=== PATIENT | female | born 1940 | race Caucasian/White ===

== ENCOUNTER 2016-04-28 16:53 | Emergency (ER) | payer MEDICARE, MEDICAID ==
[2016-04-28 18:16] VITALS: BP 131/65
--- NOTE | 2016-04-28 18:32 | EDM.PDOC ---
ED HISTORY OF PRESENT ILLNESS - General Chief Complaint: Chest Pain Stated Complaint: CHEST PAIN Time Seen by Provider: 04/28/16 17:30 Source: Reports: Patient History Limitations: Reports: No limitations - History of Present Illness INITIAL COMMENTS - FREE TEXT/NARRATIVE: History of present illness: [76-year-old female presenting with some chest pain which occurred after having an argument with her . She resides at a senior care. The chest given 3 nitroglycerin prior to coming in. She's feeling better now that she is here. She does have a cardiac history. She does feel some shortness of breath nausea and diaphoresis with this. But all this has resolved now. Her is with her and they are spending each other and apparently whenever the argument was over his done. ] Review of systems: As per history of present illness and below otherwise all systems reviewed and negative. Past medical history: As per history of present illness and as reviewed below otherwise noncontributory. Surgical history: As per history of present illness and as reviewed below otherwise noncontributory. Social history: No reported history of drug or alcohol abuse. Family history: As per history of present illness and as reviewed below otherwise noncontributory. Physical exam: HEENT: Atraumatic, normocephalic, pupils reactive, negative for conjunctival pallor or scleral icterus, mucous membranes moist, throat clear, neck supple, nontender, trachea midline. Lungs: Clear to auscultation, breath sounds equal bilaterally, chest nontender. Heart: S1S2, regular, negative for clicks, rubs, or JVD. Abdomen: Soft, nondistended, nontender. Negative for masses or hepatosplenomegaly. Negative for costovertebral tenderness. Pelvis: Stable nontender. Genitourinary: Deferred. Rectal: Deferred. Extremities: Atraumatic, negative for cords or calf pain. Neurovascular unremarkable. Neuro: Awake, alert, oriented. She's had a prior stroke and has braces on her lower extremities Diagnostics: [EKG shows a sinus rhythm with a rate of 66 with early precordial RS transition there is nonspecific T abnormalities in the inferior leads but nothing that is concerning for ischemia or injury. Her troponin was negative.] Therapeutics: [] Impression: [Chest pain] Plan: [A fairly long discussion with her about cardiac pain and certainly she had features that suggest this but they have resolved now. In the context of her having an emotional event it certainly could be she could have had a coronary spasm but she also could have underlying coronary disease. If she experiences this kind of pain again she'll need to return to the emergency room and may need further evaluation and workup but at this point I think it would be best to have her return and hopefully she will not have any further events.] Definitive disposition and diagnosis as appropriate pending reevaluation and review of above. - Related Data Allergies/ADRs: Allergies Allergy/AdvReac Type Severity Reaction Status Date / Time Iodinated Contrast Media - Allergy Severe Anaphylactic Verified 04/28/16 17:04 Oral and Shock [Iodinated Contrast Media - IV Dye] iodine Allergy Severe Anaphylactic Verified 04/28/16 17:04 Shock clindamycin Allergy Rash Verified 04/28/16 17:04 erythromycin base Allergy Cannot Verified 04/28/16 17:04 [Erythromycin Base] Remember hydroxyzine Allergy Confusion Verified 04/28/16 17:04 lidocaine Allergy Cannot Verified 04/28/16 17:04 Remember Penicillins Allergy Cannot Verified 04/28/16 17:04 Remember procaine [Procaine] Allergy Rash Verified 04/28/16 17:04 Sulfa (Sulfonamide Allergy Cannot Verified 04/28/16 17:04 Antibiotics) Remember aspirin AdvReac Cannot Verified 04/28/16 17:04 Remember Home Meds: Home Meds Citalopram [Citalopram HBr] 40 mg PO QAM 12/01/13 [History] Diazepam [Valium] 2 mg PO BEDTIME PRN 12/01/13 [History] EPINEPHrine [Epipen] 0.3 mg IM ASDIRECTED PRN 12/01/13 [History] Esomeprazole [NexIUM] 40 mg PO BID 12/01/13 [History] Furosemide 40 mg PO BID 12/01/13 [History] Gabapentin 600 mg PO BEDTIME 12/01/13 [History] Hydrocodone/Acetaminophen [[place] 5-325] 1 tab PO BID PRN 12/01/13 [History] Nitroglycerin [Nitrostat] 0.3 mg SL ASDIRECTED PRN 12/01/13 [History] Polyvinyl Alcohol [Artificial Tears] 1 drop EYEBOTH ASDIRECTED PRN 12/01/13 [ History] Potassium Chloride [Potassium Chloride Solution] 20 meq PO DAILY 10/22/14 [ History] predniSONE [Prednisone] 20 mg PO DAILY 12/01/13 [History] lamoTRIgine [LaMICtal] 100 mg PO BID 07/06/15 [History] Oxybutynin 2.5 mg PO BID 03/11/16 [History] Cephalexin [Keflex] 500 mg PO TID #30 cap 03/15/16 [Rx] Past Medical History HEENT History: Reports: Cataract, Other (see below) Other HEENT History: dental, upper and lower dentures Cardiovascular History: Reports: CAD, Heart Failure, Heart murmur, Hypertension , Other (see below) Other Cardiovascular History: angiogram Respiratory History: Reports: COPD, Other (see below) Other Respiratory History: 02 2lnc at home prn Gastrointestinal History: Reports: GERD Genitourinary History: Reports: Renal disease [employer] History: Reports: Musculoskeletal History: Reports: Back pain, chronic, Fracture, Osteoarthritis Neurological History: Reports: CVA, Seizure, Other (see below) Other Neuro History: Polio, encephalitis. Psychiatric History: Reports: Depression Other Psychiatric History: claustrophobia Endocrine/Metabolic History: Reports: Obesity/BMI 30+ Dermatologic History: Reports: Other (see below) Other Dermatologic History: rash, yeast infection, bilateral lower legs red, edematous, pt states they leak clear fluid at times - Infectious Disease History Infectious Disease History: Reports: Measles - Past Surgical History HEENT Surgical History: Reports: Tonsillectomy Respiratory Surgical History: Reports: None GI Surgical History: Reports: Cholecystectomy, Hernia repair/other, Lysis of adhesions Female Surgical History: Reports: Hysterectomy, Other (see below) Other Female Surgeries/Procedures: perianal abscess Musculoskeletal Surgical History: Reports: Other (see below) Other Musculoskeletal Surgeries/Procedures:: spurs on spine Social & Family History - Family History Family Medical History: Noncontributory Endocrine/Metabolic: Reports: Diabetes, type II - Tobacco Use Smoking Status *Q: Never Smoker Second Hand Smoke Exposure: Yes - Caffeine Use Caffeine Use: Reports: Soda - Alcohol Use Days Per Week of Alcohol Use: 0 - Recreational Drug Use Recreational Drug Use: No ED ROS GENERAL - Review of Systems Review Of Systems: ROS reveals no pertinent complaints other than HPI. ED EXAM, GENERAL - Physical Exam Exam: See Below Course - Vital Signs Last Recorded V/S: Last Vital Signs Temp 36.6 C 04/28/16 16:56 Pulse 66 04/28/16 18:15 Resp 21 H 04/28/16 18:15 BP 131/65 04/28/16 18:15 Pulse Ox 95 04/28/16 18:15 - Orders/Labs/Meds Labs: Laboratory Tests 04/28/16 Range/Units 17:39 Troponin I 0.022 (0.000-0.056) ng/mL Departure - Departure Time of Disposition: 18:33 Disposition: Home, Self-Care 01 Condition: good Clinical Impression: Chest pain Qualifiers: Chest pain type: other chest pain Qualified Code(s): R07.89 - Other chest pain ; R07.8 - Other chest pain Forms: ED Department Discharge Additional Instructions: He did experience this kind of chest pain again in the future he will need to return to the emergency room for another evaluation. The nurses at the senior care they tried nitroglycerin first but if that does not resolve your pain he will need to return.
== END 2016-04-28 19:19 | disposition home or self-care (01) ==
LOC: JP.ED 16:53
DX: R07.89 Other chest pain (principal); I25.10 Atherosclerotic heart disease of native coronary artery without angina pectoris; I50.9 Heart failure, unspecified; I10 Essential (primary) hypertension; J44.9 Chronic obstructive pulmonary disease, unspecified; K21.9 Gastro-esophageal reflux disease without esophagitis; F32.9 Major depressive disorder, single episode, unspecified; E66.9 Obesity, unspecified; Z68.43 Body mass index [BMI] 50.0-59.9, adult; Z90.49 Acquired absence of other specified parts of digestive tract; Z90.710 Acquired absence of both cervix and uterus; Z98.890 Other specified postprocedural states; Z79.899 Other long term (current) drug therapy; Z88.0 Allergy status to penicillin; Z88.1 Allergy status to other antibiotic agents; Z88.2 Allergy status to sulfonamides; Z88.8 Allergy status to other drugs, medicaments and biological substances; Z91.041 Radiographic dye allergy status
CPT/HCPCS: 36415; 84484; 93005; 93010; 99283; 99285

== ENCOUNTER 2016-07-26 12:18 | Emergency (ER) | payer MEDICARE, MEDICAID ==
[2016-07-26 12:26] VITALS: BP 99/43
[2016-07-26] MEDS ORDERED: Sodium Chloride 0.9% 10 ML Syringe FLUSH PRN ×2 (12:41)
--- NOTE | 2016-07-26 12:44 | EDM.PDOC ---
ED HPI GENERAL MEDICAL PROBLEM - General Chief Complaint: General Stated Complaint: MED[facility] Time Seen by Provider: 07/26/16 12:40 Source of Information: Reports: Patient, EMS History Limitations: Reports: Altered Mental Status - History of Present Illness INITIAL COMMENTS - FREE TEXT/NARRATIVE: Found slumped in chair in front of desk at assisted living. Just moved in 2 days ago. No hx of trauma. She is sleepy but awakens, states she feels tired. Denies trauma, no signs of infection Onset: Today Severity: Moderate Headache Pain Score (Numeric/FACES): 5 - Related Data Allergies Allergy/AdvReac Type Severity Reaction Status Date / Time Iodinated Contrast- Oral and Allergy Severe Anaphylactic Verified 04/28/16 17:04 IV Dye Shock [Iodinated Contrast Media - IV Dye] iodine Allergy Severe Anaphylactic Verified 04/28/16 17:04 Shock clindamycin Allergy Rash Verified 04/28/16 17:04 erythromycin base Allergy Cannot Verified 04/28/16 17:04 [Erythromycin Base] Remember hydroxyzine Allergy Confusion Verified 04/28/16 17:04 lidocaine Allergy Cannot Verified 04/28/16 17:04 Remember Penicillins Allergy Cannot Verified 04/28/16 17:04 Remember procaine [Procaine] Allergy Rash Verified 04/28/16 17:04 Sulfa (Sulfonamide Allergy Cannot Verified 04/28/16 17:04 Antibiotics) Remember aspirin AdvReac Cannot Verified 04/28/16 17:04 Remember Home Meds: Home Meds Citalopram [Citalopram HBr] 40 mg PO QAM 12/01/13 [History] Diazepam [Valium] 2 mg PO BEDTIME PRN 12/01/13 [History] EPINEPHrine [Epipen] 0.3 mg IM ASDIRECTED PRN 12/01/13 [History] Esomeprazole [NexIUM] 40 mg PO BID 12/01/13 [History] Furosemide 40 mg PO BID 12/01/13 [History] Gabapentin 600 mg PO BEDTIME 12/01/13 [History] Hydrocodone/Acetaminophen [[place] 5-325] 1 tab PO BID PRN 12/01/13 [History] Nitroglycerin [Nitrostat] 0.3 mg SL ASDIRECTED PRN 12/01/13 [History] Polyvinyl Alcohol [Artificial Tears] 1 drop EYEBOTH ASDIRECTED PRN 12/01/13 [ History] Potassium Chloride [Potassium Chloride Solution] 20 meq PO DAILY 12/01/13 [ History] predniSONE [Prednisone] 20 mg PO DAILY 12/01/13 [History] lamoTRIgine [LaMICtal] 100 mg PO BID 07/06/15 [History] Oxybutynin 2.5 mg PO BID 03/11/16 [History] Cephalexin [Keflex] 500 mg PO TID #30 cap 03/15/16 [Rx] Past Medical History HEENT History: Reports: Cataract, Other (See Below) Other HEENT History: dental, upper and lower dentures Cardiovascular History: Reports: CAD, Heart Failure, Heart Murmur, Hypertension , Other (See Below) Other Cardiovascular History: angiogram Respiratory History: Reports: COPD, Other (See Below) Other Respiratory History: 02 2lnc at home prn Gastrointestinal History: Reports: GERD Genitourinary History: Reports: Renal Disease [employer] History: Reports: Musculoskeletal History: Reports: Back Pain, Chronic, Fracture, Osteoarthritis Neurological History: Reports: CVA, Seizure, Other (See Below) Other Neuro History: Polio, encephalitis. Psychiatric History: Reports: Depression Other Psychiatric History: claustrophobia Endocrine/Metabolic History: Reports: Obesity/BMI 30+ Dermatologic History: Reports: Other (See Below) Other Dermatologic History: rash, yeast infection, bilateral lower legs red, edematous, pt states they leak clear fluid at times - Infectious Disease History Infectious Disease History: Reports: Measles - Past Surgical History GI Surgical History: Reports: Cholecystectomy, Hernia Repair/Other, Lysis of Adhesions Female Surgical History: Reports: Hysterectomy, Other (See Below) Musculoskeletal Surgical History: Reports: Other (See Below) Social & Family History - Family History Family Medical History: Noncontributory Endocrine/Metabolic: Reports: Diabetes, type II - Tobacco Use Smoking Status *Q: Never Smoker Second Hand Smoke Exposure: Yes - Caffeine Use Caffeine Use: Reports: Coffee - Alcohol Use Days Per Week of Alcohol Use: 0 - Recreational Drug Use Recreational Drug Use: No ED ROS GENERAL - Review of Systems Review Of Systems: See Below Constitutional: Reports: Weakness, Fatigue. Denies: Fever, Chills, Malaise HEENT: Reports: No Symptoms Respiratory: Reports: No Symptoms Cardiovascular: Reports: No Symptoms, Edema (chronic , using lymphedema wraps) Endocrine: Reports: No Symptoms GI/Abdominal: Reports: No Symptoms : Reports: No Symptoms Musculoskeletal: Reports: Other (has arthritis in neck knees and ankles) Skin: Reports: No Symptoms Neurological: Denies: Confusion, Dizziness, Headache, Change in Speech ED EXAM, GENERAL - Physical Exam Exam: See Below Exam Limited By: Other (initially sleepy, awakening, then was wide awake, carrying on normal conversation) General Appearance: Alert Ears: Normal External Exam, Normal Canal, Normal TMs Nose: Normal Inspection, Normal Mucosa Throat/Mouth: Normal Inspection, Normal Lips, Normal Teeth, Normal Oropharynx Head: Atraumatic, Normocephalic Neck: Normal Inspection, Supple, Non-Tender Respiratory/Chest: No Respiratory Distress, Lungs Clear, Normal Breath Sounds Cardiovascular: Normal Peripheral Pulses, Regular Rate, Rhythm, No Murmur GI/Abdominal: Normal Bowel Sounds, Soft Extremities: Normal Inspection, Pedal Edema (wearing lymphedema garments) Neurological: Alert, Oriented, CN II-XII Intact, No Motor/Sensory Deficits Psychiatric: Other (sleepy initially) Skin Exam: Warm, Dry, Intact Course - Vital Signs Last Recorded V/S: Last Vital Signs Temp 35.2 C 07/26/16 12:37 Pulse 60 07/26/16 12:37 Resp 20 07/26/16 12:37 BP 99/43 L 07/26/16 12:37 Pulse Ox 94 L 07/26/16 12:37 - Orders/Labs/Meds Orders: Active Orders 24 hr Category Date Time Status EKG Documentation Completion [RC] ASDIRECTED Care 07/26/16 12:43 Active Oxygen Therapy [RC] PRN Care 07/26/16 12:41 Active Peripheral IV Care [RC] . DIRECTED Care 07/26/16 12:42 Active Pulse Oximetry [RC] CONTINUOUS Care 07/26/16 12:41 Active Nothing per Oral Now Diet [DIET] Diet 07/26/16 Lunch Active Sodium Chloride 0.9% [Normal Saline] 500 ml Med 07/26/16 12:45 Active IV .BOLUS Sodium Chloride 0.9% [Saline Flush] Med 07/26/16 12:41 Active 10 ml FLUSH ASDIRECTED PRN Sodium Chloride 0.9% [Saline Flush] Med 07/26/16 12:41 Active 10 ml FLUSH ASDIRECTED PRN Peripheral IV Insertion Adult [OM.PC] Stat Oth 07/26/16 12:41 Ordered EKG 12 Lead [EK] Urgent Ther 07/26/16 12:41 Ordered Medication Orders Sodium Chloride (Normal Saline) 500 mls @ 999 mls/hr IV .BOLUS JEEVAN Last Admin: 07/26/16 13:17 Dose: 999 mls/hr Sodium Chloride (Saline Flush) 10 ml FLUSH ASDIRECTED PRN PRN Reason: Keep Vein Open Last Admin: 07/26/16 13:17 Dose: 10 ml Sodium Chloride (Saline Flush) 10 ml FLUSH ASDIRECTED PRN PRN Reason: Keep Vein Open Last Admin: 07/26/16 13:17 Dose: 10 ml Labs: Laboratory Tests 07/26/16 07/26/16 07/26/16 Range/Units 12:30 12:30 12:30 WBC 8.4 (4.5-11.0) K/uL RBC 4.48 (3.30-5.50) M/uL Hgb 11.7 L (12.0-15.0) g/dL Hct 38.9 (36.0-48.0) % MCV 87 (80-98) fL MCH 26 L (27-31) pg MCHC 30 L (32-36) % Plt Count 248 (150-400) K/uL Neut % (Auto) 51 (36-66) % Lymph % (Auto) 35 (24-44) % Esmer[place]da % (Auto) 11 H (2-6) % Eos % (Auto) 2 (2-4) % Baso % (Auto) 1 (0-1) % Sodium 145 (140-148) mmol/L Potassium 4.2 (3.6-5.2) mmol/L Chloride 107 (100-108) mmol/L Carbon Dioxide 33 H (21-32) mmol/L Anion Gap 9.2 (5.0-14.0) mmol/L BUN 6 L D (7-18) mg/dL Creatinine 1.0 (0.6-1.0) mg/dL Est Cr Clr Drug Dosing 34.38 mL/min Estimated GFR (MDRD) 54 L (>60) Glucose 96 (74-106) mg/dL Lactic Acid 1.3 (0.4-2.0) mmol/L Calcium 8.9 (8.5-10.1) mg/dL Total Bilirubin 0.3 (0.2-1.0) mg/dL AST 19 (15-37) U/L ALT 15 (12-78) U/L Alkaline Phosphatase 76 (46-116) U/L Troponin I 0.017 (0.000-0.056) ng/mL Total Protein 6.0 L (6.4-8.2) g/dL Albumin 3.1 L (3.4-5.0) g/dL Globulin 2.9 (2.3-3.5) g/dL Albumin/Globulin Ratio 1.1 L (1.2-2.2) Lipase 100 (73-393) U/L Urine Color Urine Appearance Urine pH (4.5-8.0) Ur Specific [place] (1.008-1.030) Urine Protein (NEGATIVE) mg/dL Urine Glucose (UA) (NEGATIVE) mg/dL Urine Ketones (NEGATIVE) mg/dL Urine Occult Blood (NEGATIVE) Urine Nitrite (NEGATIVE) Urine Bilirubin (NEGATIVE) Urine Urobilinogen (NORMAL) mg/dL Ur Leukocyte Esterase (NEGATIVE) Urine RBC (0-5) Urine WBC (0-5) Ur Epithelial Cells Amorphous Sediment Urine Bacteria Urine Mucus Urine Other 07/26/16 Range/Units 13:30 WBC (4.5-11.0) K/uL RBC (3.30-5.50) M/uL Hgb (12.0-15.0) g/dL Hct (36.0-48.0) % MCV (80-98) fL MCH (27-31) pg MCHC (32-36) % Plt Count (150-400) K/uL Neut % (Auto) (36-66) % Lymph % (Auto) (24-44) % Esmer[place]da % (Auto) (2-6) % Eos % (Auto) (2-4) % Baso % (Auto) (0-1) % Sodium (140-148) mmol/L Potassium (3.6-5.2) mmol/L Chloride (100-108) mmol/L Carbon Dioxide (21-32) mmol/L Anion Gap (5.0-14.0) mmol/L BUN (7-18) mg/dL Creatinine (0.6-1.0) mg/dL Est Cr Clr Drug Dosing mL/min Estimated GFR (MDRD) (>60) Glucose (74-106) mg/dL Lactic Acid (0.4-2.0) mmol/L Calcium (8.5-10.1) mg/dL Total Bilirubin (0.2-1.0) mg/dL AST (15-37) U/L ALT (12-78) U/L Alkaline Phosphatase (46-116) U/L Troponin I (0.000-0.056) ng/mL Total Protein (6.4-8.2) g/dL Albumin (3.4-5.0) g/dL Globulin (2.3-3.5) g/dL Albumin/Globulin Ratio (1.2-2.2) Lipase (73-393) U/L Urine Color Yellow Urine Appearance Clear Urine pH 5.0 (4.5-8.0) Ur Specific [place] 1.020 (1.008-1.030) Urine Protein Negative (NEGATIVE) mg/dL Urine Glucose (UA) Normal (NEGATIVE) mg/dL Urine Ketones Negative (NEGATIVE) mg/dL Urine Occult Blood Negative (NEGATIVE) Urine Nitrite Negative (NEGATIVE) Urine Bilirubin Small (NEGATIVE) Urine Urobilinogen Normal (NORMAL) mg/dL Ur Leukocyte Esterase Negative (NEGATIVE) Urine RBC 0-5 (0-5) Urine WBC 0-5 (0-5) Ur Epithelial Cells Few Amorphous Sediment Not seen Urine Bacteria Few Urine Mucus Few Urine Other Meds: Medications Generic Name Dose Route Start Last Admin Trade Name Freq PRN Reason Stop Dose Admin Sodium Chloride 500 mls @ 999 mls/hr 07/26/16 12:45 07/26/16 13:17 Normal Saline IV 999 mls/hr .BOLUS JEEVAN Administration Sodium Chloride 10 ml 07/26/16 12:41 07/26/16 13:17 Saline Flush FLUSH 10 ml ASDIRECTED PRN Administration Keep Vein Open Sodium Chloride 10 ml 07/26/16 12:41 07/26/16 13:17 Saline Flush FLUSH 10 ml ASDIRECTED PRN Administration Keep Vein Open - Re-Assessments/Exams Free Text/Narrative Re-Assessment/Exam: 07/26/16 14:36 seen on arrival, IV fluids started, labwork done and was normal. head CT normal After fluids was awake and talking asking to go home her case discussed with her POA Departure - Departure Time of Disposition: 15:05 Disposition: Home, Self-Care 01 Clinical Impression: Somnolence - Discharge Information Forms: ED Department Discharge - Problem List & Annotations (1) Altered mental status SNOMED Code(s): 615042634 Code(s): R41.82 - ALTERED MENTAL STATUS, UNSPECIFIED Status: Acute Current Visit: Yes Qualifiers: Altered mental status type: somnolence Qualified Code(s): R40.0 - Somnolence - Problem List Review Problem List Initiated/Reviewed/Updated: Yes - My Orders Last 24 Hours: My Active Orders 07/26/16 12:41 Oxygen Therapy [RC] PRN Pulse Oximetry [RC] CONTINUOUS Sodium Chloride 0.9% [Saline Flush] 10 ml FLUSH ASDIRECTED PRN Sodium Chloride 0.9% [Saline Flush] 10 ml FLUSH ASDIRECTED PRN Peripheral IV Insertion Adult [OM.PC] Stat EKG 12 Lead [EK] Urgent 07/26/16 12:42 Peripheral IV Care [RC] . DIRECTED 07/26/16 12:43 EKG Documentation Completion [RC] ASDIRECTED 07/26/16 12:45 Sodium Chloride 0.9% [Normal Saline] 500 ml IV .BOLUS 07/26/16 Lunch Nothing per Oral Now Diet [DIET] - Assessment/Plan Last 24 Hours: My Active Orders 07/26/16 12:41 Oxygen Therapy [RC] PRN Pulse Oximetry [RC] CONTINUOUS Sodium Chloride 0.9% [Saline Flush] 10 ml FLUSH ASDIRECTED PRN Sodium Chloride 0.9% [Saline Flush] 10 ml FLUSH ASDIRECTED PRN Peripheral IV Insertion Adult [OM.PC] Stat EKG 12 Lead [EK] Urgent 07/26/16 12:42 Peripheral IV Care [RC] . DIRECTED 07/26/16 12:43 EKG Documentation Completion [RC] ASDIRECTED 07/26/16 12:45 Sodium Chloride 0.9% [Normal Saline] 500 ml IV .BOLUS 07/26/16 Lunch Nothing per Oral Now Diet [DIET] Assessment:: Presents with change in mental status with sleepiness. No obvious precipitating cause, just moved into assisted living 2 days ago. Work-up in the ED was without cause with normal head CT, labwork all normal. Her mental status improved with fluids, until she was feeling better and was asking to go home. Her POA was called who was comfortable with her going home and she will be checking on her and making arrangements to make sure was doing well Plan: Will discharge back to assisted. Her POA will check on her later. At this time no clear reason for her somnolence, other than she may have overdone it yesterday
[2016-07-26] MEDS ORDERED: Sodium Chloride 0.9% 500 ML IV SCH (12:45)
--- NOTE | 2016-07-26 13:25 | CT ---
Head wo Cont INDICATION: Mental status changes. COMPARISON: CT head 07/06/2015. Total DLP 693. FINDINGS: No acute intracranial hemorrhage, mass, or edema. Generalized cerebral and cerebellar volu me loss. Cutaneous lesion left frontal scalp likely represents a dermoid cyst measuring 11 mm. Remai nder unremarkable. IMPRESSION: No acute intracranial abnormality.
== END 2016-07-26 15:18 | disposition home or self-care (01) ==
LOC: JP.ED 12:18
DX: R40.0 Somnolence (principal); K21.9 Gastro-esophageal reflux disease without esophagitis; I11.0 Hypertensive heart disease with heart failure; I50.9 Heart failure, unspecified; I25.10 Atherosclerotic heart disease of native coronary artery without angina pectoris; F32.9 Major depressive disorder, single episode, unspecified; E66.9 Obesity, unspecified; Z90.49 Acquired absence of other specified parts of digestive tract; Z98.890 Other specified postprocedural states; Z79.899 Other long term (current) drug therapy; Z88.2 Allergy status to sulfonamides; Z79.82 Long term (current) use of aspirin; Z88.8 Allergy status to other drugs, medicaments and biological substances; Z88.0 Allergy status to penicillin; Z88.1 Allergy status to other antibiotic agents; Z91.041 Radiographic dye allergy status
CPT/HCPCS: 36415; 70450; 80053; 81001; 83605; 83690; 84484; 85025; 93005; 96360; 96361; 99284; J7040; J7050; 93010

== ENCOUNTER 2019-03-03 11:05 | Emergency (ER) | payer MEDICAID, MEDICARE ==
[2019-03-03 11:10] VITALS: BP 146/38; PULSE 59
--- NOTE | 2019-03-03 11:25 | EDM.PDOC ---
ED HPI GENERAL MEDICAL PROBLEM - General Chief Complaint: Lower Extremity Injury/Pain Stated Complaint: FALL-VIA [facility] Time Seen by Provider: 03/03/19 11:10 Source of Information: Reports: Patient, EMS, [facility] Records History Limitations: Reports: No Limitations - History of Present Illness INITIAL COMMENTS - FREE TEXT/NARRATIVE: 70-year-old female was in a wheelchair being [facility] when her foot got caught on the floor and she fell forward out of the wheelchair onto her right knee, hip, and hit her face and forehead onto the floor. Her main complaint is pain in the right knee and right hip. No loss of consciousness, denies nausea or vomiting or headache. No visual complaints. Onset: Sudden Duration: Hour(s): (Within the last hour) Location: Reports: Head, Face, Lower Extremity, Right Quality: Reports: Sharp, Stabbing Improves with: Reports: Movement (Movement causes marked increased pain in her hip and knee) Associated Symptoms: Denies: Confusion, Chest Pain, Cough, Nausea/Vomiting, Shortness of Breath Right Knee Pain Score (Numeric/FACES): 9 - Related Data Allergies Allergy/AdvReac Type Severity Reaction Status Date / Time Iodinated Contrast Media Allergy Severe Anaphylactic Verified 04/28/16 17:04 [Iodinated Contrast Media - Shock IV Dye] iodine Allergy Severe Anaphylactic Verified 04/28/16 17:04 Shock clindamycin Allergy Rash Verified 04/28/16 17:04 erythromycin base Allergy Cannot Verified 04/28/16 17:04 [Erythromycin Base] Remember hydroxyzine Allergy Confusion Verified 04/28/16 17:04 lidocaine Allergy Cannot Verified 04/28/16 17:04 Remember Penicillins Allergy Cannot Verified 04/28/16 17:04 Remember procaine [Procaine] Allergy Rash Verified 04/28/16 17:04 Sulfa (Sulfonamide Allergy Cannot Verified 04/28/16 17:04 Antibiotics) Remember aspirin AdvReac Cannot Verified 04/28/16 17:04 Remember Home Meds: Home Meds Citalopram [Citalopram HBr] 20 mg PO QAM 12/01/13 [History] EPINEPHrine [Epipen] 0.3 mg IM ASDIRECTED PRN 12/01/13 [History] Furosemide 40 mg PO BID 12/01/13 [History] Gabapentin 600 mg PO BEDTIME 12/01/13 [History] Hydrocodone/Acetaminophen [Decherd 5-325] 1 tab PO BID PRN 12/01/13 [History] Polyvinyl Alcohol [Artificial Tears] 1 drop EYEBOTH ASDIRECTED PRN 12/01/13 [ History] Potassium Chloride [Potassium Chloride Solution] 20 meq PO DAILY 12/01/13 [ History] predniSONE [Prednisone] 2.5 mg PO ASDIRECTED 12/01/13 [History] lamoTRIgine [Lamictal] 200 mg PO BID 07/06/15 [History] ARIPiprazole [Aripiprazole] 5 mg PO DAILY 03/03/19 [History] Aspirin 325 mg PO ASDIRECTED PRN 03/03/19 [History] Calcium Carbonate/Vitamin D3 [Calcium Carb 500 MG] 750 mg PO TID PRN 03/03/19 [ History] Cholecalciferol (Vitamin D3) [Vitamin D3] 2,000 unit PO DAILY 03/03/19 [History] DULoxetine [Cymbalta] 60 mg PO DAILY 03/03/19 [History] Ferrous Gluconate 324 mg PO DAILY 03/03/19 [History] Fluticasone Propionate [Flonase] 2 spray JUSTYNA DAILY 03/03/19 [History] Folic Acid 1 mg PO DAILY 03/03/19 [History] Gabapentin [Neurontin] 300 mg PO BID 03/03/19 [History] Levothyroxine 25 mcg PO DAILY 03/03/19 [History] Melatonin 5 mg PO BEDTIME 03/03/19 [History] Multivitamins [Tab-A-Rajeev] 1 tab PO DAILY 03/03/19 [History] Pantoprazole [ProTONIX] 40 mg PO DAILY 03/03/19 [History] Potassium Chloride 20 meq PO BID 03/03/19 [History] Tolterodine [Detrol LA 24 Hr] 2 mg PO DAILY 03/03/19 [History] rOPINIRole [Requip] 0.25 mg PO BEDTIME 03/03/19 [History] Past Medical History HEENT History: Reports: Cataract, Other (See Below) Other HEENT History: dental, upper and lower dentures Cardiovascular History: Reports: CAD, Heart Failure, Heart Murmur, Hypertension , Other (See Below) Other Cardiovascular History: angiogram Respiratory History: Reports: COPD, Other (See Below) Other Respiratory History: 02 2lnc at home prn Gastrointestinal History: Reports: GERD Genitourinary History: Reports: Renal Disease [employer] History: Reports: Musculoskeletal History: Reports: Back Pain, Chronic, Fracture, Osteoarthritis Neurological History: Reports: CVA, Seizure, Other (See Below) Other Neuro History: Polio, encephalitis. Psychiatric History: Reports: Depression Other Psychiatric History: claustrophobia Endocrine/Metabolic History: Reports: Diabetes, Type II, Hypothyroidism, Obesity /BMI 30+ Hematologic History: Reports: Anemia Immunologic History: Reports: Other (See Below) Dermatologic History: Reports: Other (See Below) Other Dermatologic History: rash, yeast infection, bilateral lower legs red, edematous, pt states they leak clear fluid at times - Infectious Disease History Infectious Disease History: Reports: Measles - Past Surgical History GI Surgical History: Reports: Cholecystectomy, Hernia Repair/Other, Lysis of Adhesions Female Surgical History: Reports: Hysterectomy, Other (See Below) Musculoskeletal Surgical History: Reports: Other (See Below) Social & Family History - Family History Family Medical History: Noncontributory Endocrine/Metabolic: Reports: Diabetes, type II - Tobacco Use Smoking Status *Q: Never Smoker - Caffeine Use Caffeine Use: Reports: Soda - Recreational Drug Use Recreational Drug Use: No Review of Systems - Review of Systems Review Of Systems: See Below Constitutional: Denies: Fever Nose: Reports: Epistaxis (She did have some brief epistaxis after the fall, that has resolved) Respiratory: Denies: Shortness of Breath Cardiovascular: Denies: Chest Pain Skin: Reports: Bruising (Bruising is developing on the forehead and nasal bridge ) Neurological: Denies: Confusion, Headache Psychiatric: Reports: No Symptoms ED EXAM, GENERAL - Physical Exam Exam: See Below Exam Limited By: No Limitations General Appearance: Alert, No Apparent Distress Eye Exam: Bilateral Eye: EOMI Nose: Other (Some bruising over the nasal bridge. No bony tenderness, no active epistaxis) Head: Other (Patient has a superficial bruise on the forehead above the left eyebrow, no significant swelling or hematoma) Neck: Supple Respiratory/Chest: No Respiratory Distress GI/Abdominal: Other (Morbidly obese, nontender abdomen) Extremities: Other (Patient has exquisite tenderness to palpation just distal to the right knee, and through the knee itself. Also pain with palpation over the lateral right hip and passive range of motion of both knee and hip are painful) Neurological: Alert Psychiatric: Anxious Skin Exam: Warm, Dry (Bruising is developing over the left forehead and nasal bridge) Course - Vital Signs Last Recorded V/S: Last Vital Signs Temp 96.7 F 03/03/19 11:09 Pulse 59 L 03/03/19 11:09 Resp 16 03/03/19 11:09 BP 146/38 H 03/03/19 11:09 Pulse Ox 97 03/03/19 11:09 - Re-Assessments/Exams Free Text/Narrative Re-Assessment/Exam: 03/03/19 11:24 X-rays of the right hip and right knee were obtained. 03/03/19 11:59 Both knee and hip x-rays are negative for fracture. 03/03/19 12:04 After the x-rays were read, the patient assisted with weightbearing and getting on a commode and did well. She'll be [facility] the [facility]. Departure - Departure Time of Disposition: 16:44 Disposition: DC/[facility] to [facility] Clinical Impression: Contusion of right knee Qualifiers: Encounter type: initial encounter Qualified Code(s): S80.01XA - Contusion of right knee, initial encounter Facial contusion Qualifiers: Encounter type: initial encounter Qualified Code(s): S00.83XA - Contusion of other part of head, initial encounter - Discharge Information Instructions: Contusion, [id number] Referrals: PCP,None [Primary Care Provider] - Forms: ED Department Discharge Care Plan Goals: Cool compresses or ice to sore areas may be helpful for the next 1-2 days. Increase activity as tolerated and no medication changes were recommended. Recheck in 3-5 days if not improving satisfactorily. Sepsis Event Note - Evaluation Sepsis Screening Result: No Definite Risk - Focused Exam Date Exam was Performed: 03/04/19 Time Exam was Performed: 06:56
--- NOTE | 2019-03-03 12:17 | CRLCR ---
Indication: Injury and pain Technique: Pelvis and right hip 3 views Comparison: None Findings: Bones: Alignment is normal. No fractures or bone lesions. Joint spaces: Moderate bilateral hip joint osteoarthritis. Soft tissues: Unremarkable. Impression: No sign of acute injury. Dictated by Stewart Crabtree MD @ Mar 03 2019 12:14PM Signed by Dr. Stewart Crabtree @ Mar 03 2019 12:16PM
--- NOTE | 2019-03-03 12:18 | CRLCR ---
Indication: Injury and pain Technique: Right knee 2 views Comparison: None Findings: Bones: Alignment is normal. No fractures or bone lesions. Joint spaces: Severe knee joint osteoarthritis. No joint effusion. Soft tissues: Unremarkable. Impression: No sign of acute injury. Dictated by Stewart Crabtree MD @ Mar 03 2019 12:16PM Signed by Dr. Stewart Crabtree @ Mar 03 2019 12:17PM
== END 2019-03-03 16:44 ==
LOC: JP.ED 11:05
DX: S00.83XA Contusion of other part of head, initial encounter (principal); S80.01XA Contusion of right knee, initial encounter; I11.0 Hypertensive heart disease with heart failure; I50.9 Heart failure, unspecified; I25.10 Atherosclerotic heart disease of native coronary artery without angina pectoris; J44.9 Chronic obstructive pulmonary disease, unspecified; K21.9 Gastro-esophageal reflux disease without esophagitis; E03.9 Hypothyroidism, unspecified; D64.9 Anemia, unspecified; E66.9 Obesity, unspecified; Z68.43 Body mass index [BMI] 50.0-59.9, adult; Z86.73 Personal history of transient ischemic attack (TIA), and cerebral infarction without residual deficits; Z88.0 Allergy status to penicillin; Z88.1 Allergy status to other antibiotic agents; Z88.2 Allergy status to sulfonamides; Z88.4 Allergy status to anesthetic agent; Z88.5 Allergy status to narcotic agent; Z91.041 Radiographic dye allergy status; W05.0XXA Fall from non-moving wheelchair, initial encounter; Y92.129 Unspecified place in nursing home as the place of occurrence of the external cause
CPT/HCPCS: 73502-RT; 73560-RT; 99282; 99284-25